=== PATIENT | female | born 1975 | race Caucasian/White ===

== ENCOUNTER 2017-03-03 01:28 | Emergency (ER) | payer SELFPAY ==
[~2017-03-03] VITALS: Ht 175.3 cm; Wt 83.0 kg
[2017-03-03 02:50] VITALS: BP 130/77
== END 2017-03-03 02:50 | disposition home or self-care (01) ==
LOC: ED 01:28
DX: N39.0 Urinary tract infection, site not specified (principal)

== ENCOUNTER 2017-03-03 18:53 | Emergency (ER) | payer MEDICAID ==
[2017-03-03 21:35] VITALS: BP 158/98
== END 2017-03-03 21:35 | disposition home or self-care (01) ==
LOC: ED 18:53
DX: S01.112A Laceration without foreign body of left eyelid and periocular area, initial encounter (principal); I10 Essential (primary) hypertension; M79.7 Fibromyalgia; Z88.8 Allergy status to other drugs, medicaments and biological substances; X58.XXXA Exposure to other specified factors, initial encounter; Y93.89 Activity, other specified; Y92.89 Other specified places as the place of occurrence of the external cause; Y99.8 Other external cause status
CPT/HCPCS: J2001